=== PATIENT | female | born 1955 | race Caucasian/White ===

== ENCOUNTER 2018-03-01 10:12 | Emergency (ER) | payer OTHER ==
[~2018-03-01] VITALS: Ht 167.6 cm; Wt 80.7 kg
[~2018-03-01 10:12] MED LIST: CATAPRES0.2 MG PO
[2018-03-01] MEDS ORDERED: ZESTRIL5 MG (10:26)
[2018-03-01] MEDS ORDERED: SYNTHROID88 MCG (10:27)
[2018-03-01] MEDS ORDERED: SYNTHROID75 MCG (10:27)
== END 2018-03-01 12:26 | disposition home or self-care (01) ==
LOC: ER 10:12
DX: S00.571A Other superficial bite of lip, initial encounter (principal); W57.XXXA Bitten or stung by nonvenomous insect and other nonvenomous arthropods, initial encounter; Y93.89 Activity, other specified; Y92.89 Other specified places as the place of occurrence of the external cause; Y99.8 Other external cause status

== ENCOUNTER 2021-04-28 11:23 | Outpatient (CLI) | payer OTHER ==
[~2021-04-28 11:23] MED LIST changes: +SYNTHROID75 MCG; +SYNTHROID88 MCG; +ZESTRIL5 MG
== END 2021-04-28 11:35 | disposition home or self-care (01) ==
LOC: SONOGRAMA 11:23
DX: E03.8 Other specified hypothyroidism (principal)

== ENCOUNTER 2021-05-04 10:16 | Outpatient (CLI) | payer OTHER | END 2021-05-04 10:17 | disposition home or self-care (01) | LOC: LAB 10:16 | PROVIDERS: ATTEND Internal Medicine Endocrinology, Diabetes & Metabolism | DX: E78.2 Mixed hyperlipidemia (principal); I10 Essential (primary) hypertension; E03.8 Other specified hypothyroidism ==

== ENCOUNTER 2021-05-05 11:52 | Outpatient (CLI) | payer OTHER | END 2021-05-05 11:53 | disposition home or self-care (01) | LOC: LAB 11:52 | PROVIDERS: ATTEND Internal Medicine | DX: R73.09 Other abnormal glucose (principal); E78.2 Mixed hyperlipidemia; E78.00 Pure hypercholesterolemia, unspecified; E87.8 Other disorders of electrolyte and fluid balance, not elsewhere classified; E74.00 Glycogen storage disease, unspecified; D50.8 Other iron deficiency anemias; N39.0 Urinary tract infection, site not specified; E55.9 Vitamin D deficiency, unspecified; E03.5 Myxedema coma; R97.8 Other abnormal tumor markers; Z12.11 Encounter for screening for malignant neoplasm of colon ==

== ENCOUNTER 2021-12-07 12:03 | Outpatient (CLI) | payer OTHER | END 2021-12-07 12:06 | disposition home or self-care (01) | LOC: RAD 12:03 | PROVIDERS: ATTEND Orthopaedic Surgery | DX: M25.561 Pain in right knee (principal); M25.562 Pain in left knee ==

== ENCOUNTER 2021-12-12 12:41 | Outpatient (CLI) | payer OTHER | END 2021-12-12 12:46 | disposition home or self-care (01) | LOC: MRI 12:41 | PROVIDERS: ATTEND Orthopaedic Surgery | DX: S83.201A Bucket-handle tear of unspecified meniscus, current injury, left knee, initial encounter (principal) | CPT/HCPCS: 73721 ==

== ENCOUNTER 2022-07-18 12:00 | Outpatient (CLI) | payer OTHER | END 2022-07-18 12:07 | disposition home or self-care (01) | LOC: MAMO-SONO 12:00 | PROVIDERS: ATTEND Internal Medicine | DX: N64.4 Mastodynia (principal) ==